=== PATIENT | male | born 1980 | race Caucasian/White ===

== ENCOUNTER 2019-05-30 19:35 | Emergency (ER) | payer OTHER ==
[2019-05-30 19:48] VITALS: RESP 16; TEMP 99
[2019-05-30] MEDS ORDERED: HYDROmorphone 1 MG/ML 1 ML SYRINGE IM STA (20:02)
[2019-05-30] MEDS ORDERED: DIPH,PERTUS(ACELL)TETVAC-LF 0.5 ML VIAL IM ONE (20:02)
[2019-05-30] MEDS ORDERED: HYDROmorphone 1 MG/ML 1 ML SYRINGE IVP STA ×2 (20:03→20:46)
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
[2019-05-30] MEDS ORDERED: ACET/COD 300 MG/30 MG STARTER PACK 6 TAB BTL PO STA (20:50)
[2019-05-30 21:53] VITALS: BP 154/100; PULSE 77
== END 2019-05-30 21:50 | disposition home or self-care (01) ==
LOC: EC 19:35
DX: T24.202A Burn of second degree of unspecified site of left lower limb, except ankle and foot, initial encounter (principal); T31.0 Burns involving less than 10% of body surface; Z23 Encounter for immunization; X12.XXXA Contact with other hot fluids, initial encounter; Y93.G3 Activity, cooking and baking; Y92.69 Other specified industrial and construction area as the place of occurrence of the external cause; Y99.0 Civilian activity done for income or pay
CPT/HCPCS: 90715; 99283; 16020; 90471; 96374; 96376; J1170

== ENCOUNTER 2024-11-08 16:35 | Inpatient (IN) | payer OTHER ==
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
--- NOTE | 2024-11-08 17:38 | ED ---
General Adult HPI - General Chief complaint: Shortness of Breath Stated complaint: SOB Time Seen by Provider: 11/08/24 16:47 Source: patient, RN notes reviewed, old records reviewed Mode of arrival: EMS - History of Present Illness Initial comments: 44 yo male presenting with respiratory distress. Patient brought in by paramedics with a 1 week history of worsening cough and dyspnea. Patient states he has had a productive cough of white sputum for the past 1 week with progre ssive dyspnea. No central chest pain. No lower extremity pain or swelling. No history of DVT or PE, no history of CAD. Patient is an extremis on 15 L nonrebreather. Paramedics gave DuoNeb x 2 and Solu-Medrol. - Related Data Home Medications Medication Instructions Recorded Confirmed Citalopram Hydrobromide [CeleXA] 10 mg PO DAILY 11/08/24 11/08/24 Levothyroxine Sodium [Synthroid] 100 mcg PO DAILY 11/08/24 11/08/24 amLODIPine 10 mg PO DAILY 11/08/24 11/08/24 metFORMIN HCL [Glucophage] 500 mg PO DAILY 11/08/24 11/08/24 Allergies Allergy/AdvReac Type Severity Reaction Status Date / Time No Known Allergies Allergy Verified 11/08/24 18:14 Review of Systems ROS Statement: Those systems with pertinent positive or pertinent negative responses have been documented in the HPI. ROS Other: All systems not noted in ROS Statement are negative. Past Medical History Past Medical History: No Reported History History of Any Multi-Drug Resistant Organisms: None Reported Past Surgical History: Appendectomy Past Psychological History: No Psychological Hx Reported Smoking Status: Former smoker Past Alcohol Use History: Daily, Occasional Past Drug Use History: Marijuana General Exam General appearance: alert, in distress Head exam: Present: atraumatic, normocephalic Eye exam: Present: normal appearance, PERRL ENT exam: Present: mucous membranes dry Neck exam: Present: normal inspection. Absent: tenderness Respiratory exam: Present: respiratory distress, decreased breath sounds (right), other (left Lung field is clear, no wheezing) Cardiovascular Exam: Present: regular rate GI/Abdominal exam: Present: soft, distended. Absent: tenderness Extremities exam: Present: normal inspection, normal capillary refill. Absent: calf tenderness Neurological exam: Present: alert, oriented X3 Psychiatric exam: Present: anxious Skin exam: Present: warm, dry, intact, cyanosis Course Vital Signs 11/08/24 11/08/24 11/08/24 16:37 16:59 18:06 Temperature 98.7 F Pulse Rate 130 H 129 H Respiratory 24 24 18 Rate Blood Pressure 157/93 142/91 O2 Sat by Pulse 87 L 89 L Oximetry 11/08/24 19:14 Temperature Pulse Rate 126 H Respiratory 20 Rate Blood Pressure 165/100 O2 Sat by Pulse 91 L Oximetry Medical Decision Making - Medical Decision Making Was pt. sent in by a medical professional or institution (, ANT, MEDICAL HISTORIAN, urgent care, hospital, or correction...) When possible be specific @ -No Did you speak to anyone other than the patient for history (EMS, parent, family, police, friend...)? What history was obtained from this source @ -No Did you review nursing and triage notes (agree or disagree)? Why? @ -I reviewed and agree with nursing and triage notes Were old charts reviewed (outside hosp., previous admission, EMS record, old EKG, old radiological studies, urgent care reports/EKG's, correction records)? Report findings @ -No old charts were reviewed Differential Dyspnea: Coronary syndrome, arrhythmia, tamponade, asthma, COPD, pulmonary embolism, pneumonia, pneumothorax, pulmonary effusion, anaphylaxis, diabetic ketoacidosis, flailed chest, pulmonary contusion, diaphragmatic rupture, anemia, neuromuscular, this is not meant to be an all-inclusive list. EKG interpreted by me (3pts min.). @This tachycardia, low voltage, rate of 126, AK interval 123, QRS duration 84, QTc [address] segment elevation. X-rays interpreted by me (1pt min.). @ -Chest x-ray shows opacification of the right hemithorax with midline shift to the left CT interpreted by me (1pt min.). @ -CT of the chest showing massive right-sided pleural effusion. U/S interpreted by me (1pt. min.). @ -None done What testing was considered but not performed or refused? (CT, X-rays, U/S, labs)? Why? @ -None What meds were considered but not given or refused? Why? @ -None Did you discuss the management of the patient with other professionals (professionals i.e. , ANT, MEDICAL HISTORIAN, lab, RT, psych nurse, licensed clinical social worker, sole painter, teacher, chief procurement officer, director of casework)? Give summary @Case discussed with after initial chest x-ray reveals opacification of the right hemithorax Case discussed with [facility], will admit Was smoking cessation discussed for >3mins.? @ -No Was critical care preformed (if so, how long)? @ -[yes, 35 min Were there social determinants of health that impacted care today? How? ( Homelessness, low income, unemployed, alcoholism, drug addiction, transportation, low edu. Level, literacy, decrease access to med. care, longterm, rehab)? @ -No Was there de-escalation of care discussed even if they declined (Discuss DNR or withdrawal of care, Hospice)? DNR status @ -No What co-morbidities impacted this encounter? (DM, HTN, Smoking, COPD, CAD, Cancer, CVA, ARF, Chemo, Hep., AIDS, mental health diagnosis, sleep apnea, morbid obesity)? @Daily drinker, smokes marijuana Was patient admitted / discharged? Hospital course, mention meds given and route, prescriptions, significant lab abnormalities, going to OR and other pertinent info. @ -[44-year-old male presenting in extremis, tachycardic, hypoxic on 15 L. Patient has decreased air entry on the right. X-ray showing opacification of the right hemithorax, CT confirming large right-sided pleural effusion. Patient has lab abnormalities including leukocytosis, lactic acidosis, patient covered with antibiotics for pneumonia. Chest tube placed by Dr. Pettit in the emergency department. Undiagnosed new problem with uncertain prognosis? @ -No Drug Therapy requiring intensive monitoring for toxicity (Heparin, Nitro, Insu karlee, Cardizem)? @ -No Were any procedures done? @ -No Diagnosis/symptom? @ -Right-sided pleural effusion, pneumonia, respiratory failure Acute, or Chronic, or Acute on Chronic? @ -Acute Uncomplicated (without systemic symptoms) or Complicated (systemic symptoms)? @ -Default Side effects of treatment? @ -No Exacerbation, Progression, or Severe Exacerbation? @ -No Poses a threat to life or bodily function? How? (Chest pain, USA, CA, pneumonia, PE, COPD, DKA, ARF, appy, cholecystitis, CVA, Diverticulitis, Homicidal, Suicidal, threat to staff... and all critical care pts) @ -[yes, respiratory failure - Lab Data Result diagrams: 11/08/24 17:02 11/08/24 17:02 Lab Results 11/08/24 11/08/24 11/08/24 Range/Units 17:02 17:02 17:02 WBC 15.6 H (3.8-10.6) k/uL RBC 4.22 L (4.30-5.90) m/uL Hgb 13.2 (13.0-17.5) gm/dL Hct 40.1 (39.0-53.0) % MCV 95.2 (80.0-100.0) fL MCH 31.3 (25.0-35.0) pg MCHC 32.9 (31.0-37.0) g/dL RDW 17.7 H (11.5-15.5) % Plt Count 250 (150-450) k/uL MPV 9.3 Neutrophils % 76 % Lymphocytes % 16 % Monocytes % 5 % Eosinophils % 1 % Basophils % 1 % Neutrophils # 11.9 H (1.3-7.7) k/uL Lymphocytes # 2.5 (1.0-4.8) k/uL Monocytes # 0.8 (0-1.0) k/uL Eosinophils # 0.1 (0-0.7) k/uL Basophils # 0.1 (0-0.2) k/uL Anisocytosis Slight Macrocytosis Slight PT (10.0-12.5) sec INR (<1.2) APTT (22.0-30.0) sec Sodium 131 L (137-145) mmol/L Potassium 4.1 (3.5-5.1) mmol/L Chloride 91 L (98-107) mmol/L Carbon Dioxide 25 (22-30) mmol/L Anion Gap 15 mmol/L BUN 7 L (9-20) mg/dL Creatinine 0.56 L (0.66-1.25) mg/dL Est GFR (CKD-EPI)AfAm >90 (>60 ml/min/1.73 sqM) Est GFR (CKD-EPI)NonAf >90 (>60 ml/min/1.73 sqM) Glucose 129 H (74-99) mg/dL Plasma Lactic Acid Christiano 3.4 H* (0.7-2.0) mmol/L Calcium 8.7 (8.4-10.2) mg/dL Magnesium 1.3 L (1.6-2.3) mg/dL Total Bilirubin 3.2 H (0.2-1.3) mg/dL AST 194 H (17-59) U/L ALT 41 (4-49) U/L Alkaline Phosphatase 158 H (38-126) U/L Troponin I (0.000-0.034) ng/mL NT-Pro-B Natriuret Pep 118 pg/mL Total Protein 9.0 H (6.3-8.2) g/dL Albumin 4.0 (3.5-5.0) g/dL Influenza Type A (PCR) (Not Detectd) Influenza Type B (PCR) (Not Detectd) RSV (PCR) (Not Detectd) SARS-CoV-2 (PCR) (Not Detectd) 11/08/24 11/08/24 11/08/24 Range/Units 17:02 17:26 18:00 WBC (3.8-10.6) k/uL RBC (4.30-5.90) m/uL Hgb (13.0-17.5) gm/dL Hct (39.0-53.0) % MCV (80.0-100.0) fL MCH (25.0-35.0) pg MCHC (31.0-37.0) g/dL RDW (11.5-15.5) % Plt Count (150-450) k/uL MPV Neutrophils % % Lymphocytes % % Monocytes % % Eosinophils % % Basophils % % Neutrophils # (1.3-7.7) k/uL Lymphocytes # (1.0-4.8) k/uL Monocytes # (0-1.0) k/uL Eosinophils # (0-0.7) k/uL Basophils # (0-0.2) k/uL Anisocytosis Macrocytosis PT 16.9 H (10.0-12.5) sec INR 1.6 H (<1.2) APTT 27.8 (22.0-30.0) sec Sodium (137-145) mmol/L Potassium (3.5-5.1) mmol/L Chloride (98-107) mmol/L Carbon Dioxide (22-30) mmol/L Anion Gap mmol/L BUN (9-20) mg/dL Creatinine (0.66-1.25) mg/dL Est GFR (CKD-EPI)AfAm (>60 ml/min/1.73 sqM) Est GFR (CKD-EPI)NonAf (>60 ml/min/1.73 sqM) Glucose (74-99) mg/dL Plasma Lactic Acid Christiano (0.7-2.0) mmol/L Calcium (8.4-10.2) mg/dL Magnesium (1.6-2.3) mg/dL Total Bilirubin (0.2-1.3) mg/dL AST (17-59) U/L ALT (4-49) U/L Alkaline Phosphatase (38-126) U/L Troponin I <0.012 (0.000-0.034) ng/mL NT-Pro-B Natriuret Pep pg/mL Total Protein (6.3-8.2) g/dL Albumin (3.5-5.0) g/dL Influenza Type A (PCR) Not Detected (Not Detectd) Influenza Type B (PCR) Not Detected (Not Detectd) RSV (PCR) Not Detected (Not Detectd) SARS-CoV-2 (PCR) Not Detected (Not Detectd) Critical Care Time Critical Care Time: Yes Total Critical Care Time: 35 Disposition Clinical Impression: Community acquired pneumonia, Pleural effusion, Hypoxic respiratory failure Disposition: ADMITTED IP TO THIS HOSP Condition: Serious Is patient prescribed a controlled substance at d/c from ED?: No Referrals: Georgina Monryo MD [Primary Care Provider] - 1-2 days Time of Disposition: 19:25
[2024-11-08 17:45] LABS: Anisocytosis Slight; Basophils # (A) 0.1 k/uL (0-0.2); Basophils % (A) 1 %; Eosinophils # (A) 0.1 k/uL (0-0.7); Eosinophils % (A) 1 %; HCT 40.1 % (39.0-53.0); HGB 13.2 gm/dL (13.0-17.5); Lymphocytes # (A) 2.5 k/uL (1.0-4.8); Lymphocytes % (A) 16 %; MCH 31.3 pg (25.0-35.0); MCHC 32.9 g/dL (31.0-37.0); MCV 95.2 fL (80.0-100.0); Macrocytosis Slight; Mean Platelet Volume 9.3; Monocytes # (A) 0.8 k/uL (0-1.0); Monocytes % (A) 5 %; Neutrophils # (A) 11.9 k/uL (1.3-7.7); Neutrophils % (A) 76 %; Platelet Count 250 k/uL (150-450); RBC 4.22 m/uL (4.30-5.90); RDW 17.7 % (11.5-15.5); WBC 15.6 k/uL (3.8-10.6)
[2024-11-08 18:08] LABS: ALT 41 U/L (4-49); African American GFR (CKD) >90 (>60 ml/min/1.73 sqM); Anion Gap 15 mmol/L; Blood Urea Nitrogen 7 mg/dL (9-20); Calcium 8.7 mg/dL (8.4-10.2); Carbon Dioxide 25 mmol/L (22-30); Chloride 91 mmol/L (98-107); Glucose 129 mg/dL (74-99); Non-African American GFR(CKD) >90 (>60 ml/min/1.73 sqM); Sodium 131 mmol/L (137-145); Total Bilirubin 3.2 mg/dL (0.2-1.3)
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
[2024-11-08 18:17] LABS: NT-Pro-B-Type Natriuretic Pept 118 pg/mL; Potassium 4.1 mmol/L (3.5-5.1)
[2024-11-08 18:18] LABS: AST 194 U/L (17-59); Alkaline Phosphatase 158 U/L (38-126); Magnesium 1.3 mg/dL (1.6-2.3)
[2024-11-08] MEDS: AZITHROMYCIN 500 MG in SODIUM CHLORIDE 0.9% 250 ML IVPB STA (18:55)
[2024-11-08 19:09] LABS: INR 1.6 (<1.2); Partial Thromboplastin Time 27.8 sec (22.0-30.0); Prothrombin Time 16.9 sec (10.0-12.5)
[2024-11-08] MEDS: MAGNESIUM SULFATE-D5W PMX 1 GM in DEXTROSE/WATER 1 100ML.BAG IVPB SCH (19:17)
[2024-11-08] MEDS ORDERED: NALOXONE 0.4 MG/ML 1 ML VIAL IV PRN (19:19)
[2024-11-08 19:48] LABS: Appearance,Urine Turbid (Clear); Bilirubin,Urine 1+ (Negative); Blood,Urine Negative (Negative); Color,Urine Dark Brown; Glucose,Urine (UA) Trace (Negative); Hyaline Casts,Urine 25 /lpf (0-2); Ketones,Urine Negative (Negative); Leukocyte Esterase,Urine Negative (Negative); Mucus,Urine Many /hpf; Nitrite,Urine Negative (Negative); PH, Urine 5.5 (5.0-8.0); Protein,Urine 1+ (Negative); RBC,Urine 3 /hpf (0-5); Specific Gravity,Urine 1.025 (1.001-1.035); Squamous Epithelial Cell,Urine 5 /hpf (0-4); Urobilinogen,Urine <2.0 mg/dL (<2.0); WBC,Urine 2 /hpf (0-5)
--- NOTE | 2024-11-08 20:03 | P.PCN ---
Date of Procedure: 11/08/24 Preoperative Diagnosis: Right-sided pleural effusion Postoperative Diagnosis: Right-sided pleural effusion Procedure(s) Performed: chest tube right-sided Anesthesia: local Surgeon: Dmitiry Chau Estimated Blood Loss (ml): 0 Pathology: other Condition: stable Disposition: floor Operative Findings: A time-out was completed verifying correct patient, procedure, site, positioning, and special equipment if applicable. The patient was positioned appropriately for chest tube placement. The patients right chest was prepped and draped in sterile fashion. 1% Lidocaine was used to anesthetize the surrounding skin area. A 2 cm skin incision was made in the mid-axillary line at the inframammarycrease. Utilizing blunt dissection a subcutaneous tunnel was created cephalad just adjacent to the superior rib. The pleural space was entered bluntly and gush of pleural fluid was observed. A finger was inserted into the pleural space to check for anatomy and guide tube insertion. A 28 thoracostomy tube was inserted using a Kaila clamp and positioned appropriately. The chest tube was sutured securely to the skin and a sterile dressing applied. A pleurevac was attached to the chest tube and a chest x-ray obtained. I personally performed this procedure and I was was present for the entire procedure. Following insertion of the chest tube, a total of 5.5 L of pleural fluid was aspirated and collected in the Pleur-evac atrium. Estimated Blood Loss: 0 The patient tolerated the procedure well and there were no complications.
[2024-11-08] MEDS: LIDOCAINE 1% INJ 10MG/ML (20 ML MDV) SQ ONE (20:10)
--- NOTE | 2024-11-08 20:16 | XR ---
EXAMINATION TYPE: XR chest 1V portable DATE OF EXAM: 11/08/2024 8:03 PM CLINICAL INDICATION:Male, 44 years old with history of Chest tube; [facility] COMPARISON: CT chest from the same day. Chest radiograph from same day. TECHNIQUE: XR chest 1V portable Frontal view of the chest. FINDINGS: There is interval significant improvement of aeration of the right lung when compared to the previous chest x-ray from same day. There is residual opacification seen in the right mid and lower lung zone . No pneumothorax. Cardiac silhouette is unremarkable. Mild interstitial prominence of the left lung. No pneumothorax. No acute osseous normality is. IMPRESSION: 1. Significant interval improvement of the right lung aeration with only residual opacities remaining in the right mid/lower lung which may reflect residual fluid versus atelectasis. No pneumothorax. 2. There is no chest tube seen on exam. Correlate with physical exam. [facility], , 11/08/2024 8:13 PM
[2024-11-08] MEDS: HYDROmorphone 0.5 MG/0.5 ML SYRINGE IVP STA (20:17)
[2024-11-08] MEDS: SODIUM CHLORIDE 0.9% 1,000 ML IV SCH (20:56)
[2024-11-08 21:21] LABS: Total Protein 8.7 g/dL (6.3-8.2)
[2024-11-08] MEDS: HYDROmorphone 0.5 MG/0.5 ML SYRINGE IVP PRN (21:45)
--- NOTE | 2024-11-08 22:06 | P.CNPUL ---
History of Present Illness Consult date: 11/08/24 Reason for consult: dyspnea, pleural effusion History of present illness: 44-year-old male patient, came into the emergency because of progressive worsening shortness of breath over the past 3 to 4 weeks and he was in severe respiratory distress, unable to lay down flat because of ongoing dyspnea. No chest pain. No trauma to the chest. No reported fever or chills. Minimal cough. No significant sputum production. In the emergency, he was placed on 100% nonrebreather facemask to maintain a saturation of around 88 to 89%. The patient was in sinus tachycardia when he was having labored breathing. Chest x- ray showed complete opacification of the right lung and based on that, a CAT scan of the chest was obtained that showed a massive right-sided pleural effusion and complete atelectasis of the right lung. Focal infiltrate in the l eft lung was also seen. The patient's white cell count is 15.6, hemoglobin 13.2, platelet count of 250, INR is at 1.6 with a PT of 16.9, sodium was at 131 with a potassium level of 4.1, BUN is 7 with a creatinine of 0.5. Anion gap is at 15. Initial lactic acid level was at 3.4, dropped down to 2.4, proBNP level was 118, troponin was negative, albumin was 4 with a total protein of 9.0. UA showed +1 protein, 2 WBCs and viral 4 Plex was negative. No history of any congestion or heart failure. Smokes marijuana. Review of Systems Constitutional: Reports daytime sleepiness, Reports fatigue, Reports weight gain Eyes: denies as per HPI, denies blurred vision, denies bulging eye, denies decreased vision, denies diplopia, denies discharge, denies dry eye, denies irritation, denies itching, denies pain, denies photophobia, denies loss of peripheral vision, denies loss of vision, denies tunnel vision/blind spots Ears: deny: decreased hearing, ear discharge, earache, tinnitus Breasts: absent: as per HPI, gynecomastia Cardiovascular: Reports decreased exercise tolerance, Reports dyspnea on exertion Respiratory: Reports dyspnea Gastrointestinal: Reports as per HPI Genitourinary: Reports as per HPI Musculoskeletal: Reports as per HPI Musculoskeletal: absent: ankle pain, ankle stiffness, ankle swelling, as per HPI, elbow pain, elbow stiffness, elbow swelling, foot pain, foot stiffness, foot swelling, hand pain, hand stiffness, hand swelling, hip pain, hip stiffness, hip swelling, knee pain, knee stiffness, knee swelling, shoulder pain, shoulder stiffness, shoulder swelling, wrist pain, wrist stiffness, wrist swelling Integumentary: Reports as per HPI Neurological: Reports as per HPI Psychiatric: Reports as per HPI Endocrine: Reports as per HPI Hematologic/Lymphatic: Reports as per HPI Allergic/Immunologic: Reports as per HPI Past Medical History Past Medical History: No Reported History, Diabetes Mellitus, Hypertension, Th yroid Disorder History of Any Multi-Drug Resistant Organisms: None Reported Past Surgical History: Appendectomy Past Psychological History: No Psychological Hx Reported Smoking Status: Former smoker Past Alcohol Use History: Daily, Occasional Past Drug Use History: Marijuana Medications and Allergies Home Medications Medication Instructions Recorded Confirmed Type Citalopram Hydrobromide [CeleXA] 10 mg PO DAILY 11/08/24 11/08/24 History Levothyroxine Sodium [Synthroid] 100 mcg PO DAILY 11/08/24 11/08/24 History amLODIPine 10 mg PO DAILY 11/08/24 11/08/24 History metFORMIN HCL [Glucophage] 500 mg PO DAILY 11/08/24 11/08/24 History Allergies Allergy/AdvReac Type Severity Reaction Status Date / Time No Known Allergies Allergy Verified 11/08/24 18:14 Physical Exam Vitals: Vital Signs Temp Pulse Resp BP Pulse Ox 11/08/24 21:36 98.6 F 126 H 18 157/99 94 L 11/08/24 20:28 128 H 22 134/87 95 11/08/24 20:06 128 H 18 127/80 100 11/08/24 19:14 126 H 20 165/100 91 L 11/08/24 18:06 129 H 18 142/91 89 L 11/08/24 16:59 24 11/08/24 16:37 98.7 F 130 H 24 157/93 87 L Intake and Output 11/08/24 11/08/24 11/08/24 06:59 14:59 22:59 Output Total 5500 Balance -5500 Output: Chest Tube Drainage 5500 Chest Tube Right Mid- 5500 Axillary Chest Other: Weight 127.006 kg Results - Laboratory Findings CBC and BMP: 11/08/24 17:02 11/08/24 17:02 PT/INR, D-dimer PT 16.9 sec (10.0-12.5) H 11/08/24 18:00 INR 1.6 (<1.2) H 11/08/24 18:00 Abnormal lab findings: Abnormal Labs 11/08/24 11/08/24 11/08/24 17:02 17:02 17:02 WBC 15.6 H RBC 4.22 L RDW 17.7 H Neutrophils # 11.9 H PT INR Sodium 131 L Chloride 91 L BUN 7 L Creatinine 0.56 L Glucose 129 H Plasma Lactic Acid Christiano 3.4 H* Magnesium 1.3 L Total Bilirubin 3.2 H AST 194 H Alkaline Phosphatase 158 H Lactate Dehydrogenase Total Protein 9.0 H Urine Protein Urine Glucose (UA) Urine Bilirubin Ur Squamous Epith Cells Hyaline Casts Urine Mucus 11/08/24 11/08/24 11/08/24 18:00 19:14 20:22 WBC RBC RDW Neutrophils # PT 16.9 H INR 1.6 H Sodium Chloride BUN Creatinine Glucose Plasma Lactic Acid Christiano Magnesium Total Bilirubin AST Alkaline Phosphatase Lactate Dehydrogenase 410 H Total Protein 8.7 H Urine Protein 1+ H Urine Glucose (UA) Trace H Urine Bilirubin 1+ H Ur Squamous Epith Cells 5 H Hyaline Casts 25 H Urine Mucus Many H 11/08/24 20:22 WBC RBC RDW Neutrophils # PT INR Sodium Chloride BUN Creatinine Glucose Plasma Lactic Acid Christiano 2.4 H* Magnesium Total Bilirubin AST Alkaline Phosphatase Lactate Dehydrogenase Total Protein Urine Protein Urine Glucose (UA) Urine Bilirubin Ur Squamous Epith Cells Hyaline Casts Urine Mucus - Diagnostic Findings CT scan - chest: image reviewed Assessment and Plan Plan: Acute hypoxic respiratory failure, currently on 100% nonrebreather facemask Subacute shortness of breath with acute worsening over the past 1 week Large right-sided pleural effusion with mass effect and shift of the trachea to the left and complete atelectasis of the right lung. Rule out parapneumonic effusion. Rule out malignant effusion. Rule out chronic liver disease with hepatic hydrothorax. Sinus tachycardia Leukocytosis, likely acute Obesity with a BMI of 40.2 Hypertension Hypothyroidism Diabetes mellitus type 2 Plan Patient was seen and evaluated in the emergency. The patient will need a emergent chest tube to evacuate right-sided pleural effusion. This will be done in the emergency department following that the pleural fluid will be sent for analysis. Further recommendations are to follow based on the results of the f luid analysis. Patient was started on empiric antibiotic coverage, given a combination of Rocephin and Zithromax in the emergency department. Will continue following of this patient.
[2024-11-09 04:11] LABS: Cholesterol,BF Source Pleural Fluid; Cholesterol,Body Fluid 26 mg/dL; Glucose, BF Source Pleural Fluid; Glucose, Body Fluid 131 mg/dL; LDH, Body Fluid Source Pleural Fluid; T. Protein, Body Fluid Source Pleural Fluid; Total Protein, Body Fluid 3350 mg/dL
[2024-11-09 04:26] LABS: Appearance,BF Clear (Clear)
[2024-11-09] MEDS: LEVOTHYROXINE 100 MCG TAB PO SCH (06:16)
--- NOTE | 2024-11-09 08:23 | US ---
EXAMINATION TYPE: US abdomen complete DATE OF EXAM: 11/09/2024 COMPARISON: NONE CLINICAL INDICATION: Male, 44 years old with history of Rule out chronic liver disease, rule out asci yarelis; Patient drinks up to 12 beers per day; Recent ? flu with diarrhea and OSCAR. Chest tube inserted y esterday to drain fluid off of lungs TECHNIQUE: Grayscale and color Doppler imaging of the abdomen was performed. FINDINGS: EXAM MEASUREMENTS: Liver Length: 25.0 cm Gallbladder Wall: 0.2 cm CBD: 0.5 cm, color Doppler imaging was utilized to isolate the common bile duct for measurement. Spleen: 15.7 cm Right Kidney: 13.3 x 5.5 x 6.5 cm Left Kidney: 15.3 x 6.1 x 5.8 cm [employer] NOTES: Pancreas: Obscured by bowel gas Liver: Increased attenuation, decreased visualization of vessels suggestive of fatty infiltrate Gallbladder: Limited visualization Evidence for sonographic Mitchell's sign: ? discomfort due to right chest tube CBD: wnl Spleen: Increased attenuation Right Kidney: Limited visualization due to bowel gas Left Kidney: Limited visualization due to bowel gas Upper IVC: Obscured by overlying bowel gas Abd Aorta: Obscured by overlying bowel gas No ascites seen - extensive bowel gas throughout abdomen - patient is properly NPO Suboptimal evaluation of pancreas. Suboptimal evaluation of mid and distal abdominal aorta. Hepatomeg beatriz. Visualized liver is diffusely hyperechoic. Evaluation for focal masses suboptimal due to the het erogeneous echogenicity. Common bile duct measures within normal limits. Poorly visualized gallbladde r. No gross hydronephrosis in either kidney. Splenomegaly is seen. No distinct ascites. IMPRESSION: Suboptimal study. Hepatosplenomegaly is noted. There is diffuse fatty infiltration and/or underlying hepatocellular disease noted. No ascites is present. [facility], , 11/09/2024 8:21 AM
--- NOTE | 2024-11-09 09:55 | XR ---
EXAMINATION TYPE: XR chest 1V portable DATE OF EXAM: 11/09/2024 CLINICAL HISTORY: Status post chest tube insertion. TECHNIQUE: Single AP portable semiupright view of the chest is obtained. COMPARISON: Chest x-ray from one day earlier FINDINGS: Persistent right basilar chest tube. Continued improved aeration right lung. Developing le ft basilar opacity noted. Cardiac silhouette size stable and within normal limits. Osseous structures are intact. IMPRESSION: Continued improving right lower lung acute infiltrate and/or atelectasis but developing l eft basilar acute infiltrate and/or atelectasis noted. [facility], , 11/09/2024 9:53 AM
[2024-11-09] MEDS: CITALOPRAM HYDROBROMIDE 10 MG TAB PO SCH (10:38)
[2024-11-09] MEDS: amLODIPine 10 MG TAB PO SCH (10:38)
[2024-11-09] MEDS: METOPROLOL TARTRATE 25 MG TAB PO SCH (11:38)
--- NOTE | 2024-11-09 12:18 | P.HPIM ---
History of Present Illness 44-year-old pleasant male came in with complaints of worsening shortness of breath has been going on for 3 to 4 weeks found to have a extensive right-sided pleural effusion complete whiteout of the right lung. Patient underwent pleural tap removal of about 6 L of pleural fluid. Pleural fluid labs are consistent with transudative. Patient does not have any elevated BNP clinically does not appear to be in CHF although patient appears to have ascites and liver disease with fatty liver patient has chronic alcoholism quit quit alcohol quite a bit recently. Ultrasound of the abdomen was done which showed fatty liver patient does have slightly elevated liver enzymes and INR is 1.6. All consistent with hepatocellular disease from chronic alcoholism. Hepatitis panel was ordered. Patient does not have any evidence of pneumonia although patient was empirically started on antibiotics before the fluid pleural pleural fluid analysis. There is no evidence of pneumonia. I do not have any albumin level for the fluid but serum albumin is 4 LDH is above 400 and fluid LDH is around 140. Presently has a chest tube in place. Hepatitis panel was ordered. REVIEW OF SYSTEMS: All other systems are negative except those mentioned in the HPI PHYSICAL EXAMINATION: GENERAL: The patient is alert and oriented x3, not in any acute distress. Obese HEENT: Pupils are round and equally reacting to light. EOMI. No scleral icterus. No conjunctival pallor. Normocephalic, atraumatic. No pharyngeal erythema. No thyromegaly. CARDIOVASCULAR: S1 and S2 present. No murmurs, rubs, or gallops. PULMONARY: Chest is clear to auscultation, no wheezing or crackles. ABDOMEN: Soft, nontender, distended abdomen, normoactive bowel sounds. No palpable organomegaly. MUSCULOSKELETAL: No joint swelling or deformity. EXTREMITIES: No cyanosis, clubbing, or pedal edema. NEUROLOGICAL: Gross neurological examination did not reveal any focal deficits. SKIN: No rashes. Assessment and plan -Acute hypoxic respiratory failure secondary to right-sided pleural effusion patient is status post removal of 6 L of fluid with a chest tube. Patient probably has cirrhosis leading to volume overload and patient has transudative pleural effusion. Low possibility of malignancy cytology is pending. Antibiotics probably can be discontinued no evidence of pneumonia at this time. -Transfer to right-sided pleural effusion -Possible cirrhosis/hepatocellular disease from chronic alcoholism -Hypertension -Hypothyroidism -Type 2 diabetes mellitus for which patient will be on sliding scale insulin DVT prophylaxis: Patient is already anticoagulated with elevated INR of 1.6 early ambulation will not require any pharmacological DVT prophylaxis at this time Past Medical History Past Medical History: No Reported History, Diabetes Mellitus, Hypertension, Thyroid Disorder History of Any Multi-Drug Resistant Organisms: None Reported Past Surgical History: Appendectomy Past Psychological History: No Psychological Hx Reported Smoking Status: Former smoker Past Alcohol Use History: Daily, Occasional Past Drug Use History: Marijuana Medications and Allergies Home Medications Medication Instructions Recorded Confirmed Type Citalopram Hydrobromide [CeleXA] 10 mg PO DAILY 11/08/24 11/08/24 History Levothyroxine Sodium [Synthroid] 100 mcg PO DAILY 11/08/24 11/08/24 History amLODIPine 10 mg PO DAILY 11/08/24 11/08/24 History metFORMIN HCL [Glucophage] 500 mg PO DAILY 11/08/24 11/08/24 History Allergies Allergy/AdvReac Type Severity Reaction Status Date / Time No Known Allergies Allergy Verified 11/08/24 18:14 Physical Exam Vitals: Vital Signs Temp Pulse Pulse Resp BP Pulse Ox 11/09/24 11:37 117 H 20 125/80 90 L 11/09/24 10:35 115 H 16 11/09/24 10:30 98.1 F 115 H 16 144/83 92 L 11/09/24 06:00 98.5 F 118 H 20 134/76 92 L 11/09/24 04:00 115 H 16 141/85 92 L 11/09/24 02:45 120 H 17 141/85 90 L 11/09/24 01:37 123 H 18 138/84 91 L 11/09/24 00:14 128 H 18 91 L 11/08/24 23:10 99.3 F 128 H 18 150/91 90 L 11/08/24 21:58 98.7 F 128 H 21 137/91 90 L 11/08/24 21:36 98.6 F 126 H 18 157/99 94 L 11/08/24 20:28 128 H 22 134/87 95 11/08/24 20:06 128 H 18 127/80 100 11/08/24 19:14 126 H 20 165/100 91 L 11/08/24 18:06 129 H 18 142/91 89 L 11/08/24 16:59 24 11/08/24 16:37 98.7 F 130 H 24 157/93 87 L Intake and Output 11/08/24 11/09/24 11/09/24 22:59 06:59 14:59 Output Total 5500 1100 335 Balance -5500 -1100 -335 Output: Chest Tube Drainage 5500 Chest Tube Right Mid- 5500 Axillary Chest Drainage 650 335 Right Chest 650 335 Urine 450 Other: Weight 127.006 kg Results CBC & Chem 7: 11/08/24 17:02 11/08/24 17:02 Labs: Abnormal Lab Results - Last 24 Hours (Table) 11/08/24 11/08/24 11/08/24 Range/Units 17:02 17:02 17:02 WBC 15.6 H (3.8-10.6) k/uL RBC 4.22 L (4.30-5.90) m/uL RDW 17.7 H (11.5-15.5) % Neutrophils # 11.9 H (1.3-7.7) k/uL PT (10.0-12.5) sec INR (<1.2) Sodium 131 L (137-145) mmol/L Chloride 91 L (98-107) mmol/L BUN 7 L (9-20) mg/dL Creatinine 0.56 L (0.66-1.25) mg/dL Glucose 129 H (74-99) mg/dL Plasma Lactic Acid Christiano 3.4 H* (0.7-2.0) mmol/L Magnesium 1.3 L (1.6-2.3) mg/dL Total Bilirubin 3.2 H (0.2-1.3) mg/dL AST 194 H (17-59) U/L Alkaline Phosphatase 158 H (38-126) U/L Lactate Dehydrogenase (120-246) U/L Total Protein 9.0 H (6.3-8.2) g/dL Urine Protein (Negative) Urine Glucose (UA) (Negative) Urine Bilirubin (Negative) Ur Squamous Epith Cells (0-4) /hpf Hyaline Casts (0-2) /lpf Urine Mucus (None) /hpf 11/08/24 11/08/24 11/08/24 Range/Units 18:00 19:14 20:22 WBC (3.8-10.6) k/uL RBC (4.30-5.90) m/uL RDW (11.5-15.5) % Neutrophils # (1.3-7.7) k/uL PT 16.9 H (10.0-12.5) sec INR 1.6 H (<1.2) Sodium (137-145) mmol/L Chloride (98-107) mmol/L BUN (9-20) mg/dL Creatinine (0.66-1.25) mg/dL Glucose (74-99) mg/dL Plasma Lactic Acid Christiano (0.7-2.0) mmol/L Magnesium (1.6-2.3) mg/dL Total Bilirubin (0.2-1.3) mg/dL AST (17-59) U/L Alkaline Phosphatase (38-126) U/L Lactate Dehydrogenase 410 H (120-246) U/L Total Protein 8.7 H (6.3-8.2) g/dL Urine Protein 1+ H (Negative) Urine Glucose (UA) Trace H (Negative) Urine Bilirubin 1+ H (Negative) Ur Squamous Epith Cells 5 H (0-4) /hpf Hyaline Casts 25 H (0-2) /lpf Urine Mucus Many H (None) /hpf 11/08/24 11/08/24 Range/Units 20:22 23:42 WBC (3.8-10.6) k/uL RBC (4.30-5.90) m/uL RDW (11.5-15.5) % Neutrophils # (1.3-7.7) k/uL PT (10.0-12.5) sec INR (<1.2) Sodium (137-145) mmol/L Chloride (98-107) mmol/L BUN (9-20) mg/dL Creatinine (0.66-1.25) mg/dL Glucose (74-99) mg/dL Plasma Lactic Acid Christiano 2.4 H* 3.5 H* (0.7-2.0) mmol/L Magnesium (1.6-2.3) mg/dL Total Bilirubin (0.2-1.3) mg/dL AST (17-59) U/L Alkaline Phosphatase (38-126) U/L Lactate Dehydrogenase (120-246) U/L Total Protein (6.3-8.2) g/dL Urine Protein (Negative) Urine Glucose (UA) (Negative) Urine Bilirubin (Negative) Ur Squamous Epith Cells (0-4) /hpf Hyaline Casts (0-2) /lpf Urine Mucus (None) /hpf Microbiology - Last 24 Hours (Table) 11/08/24 20:05 Gram Stain - Preliminary Pleural Fluid
[2024-11-09 12:31] LABS: Glucose,Whole Blood 145 mg/dL (70-110)
[2024-11-09] MEDS: INSULIN ASPART (NovoLOG) 100 UNIT/ML VIAL SQ SCH (12:35)
[2024-11-09] MEDS: MAGNESIUM SULFATE-D5W PMX 1 GM in DEXTROSE/WATER 1 100ML.BAG IVPB SCH (12:36)
--- NOTE | 2024-11-09 13:17 | CA ---
Transthoracic Echo Report Name: Victor M Ahn Age: 44 Gender: M : 1980 Exam Date: 11/09/2024 09:49 Exam Location: [place] [facility] Ht (in): 70 Wt (lb): 280 Ordering Physician: Dmitriy Chau MD Attending/Referring Phys: Stone Layout Marker Zuleika Garcia RDCS Procedure CPT: Indications: rule out CHF Cardiac Hx: Technical Quality: Poor Contrast 1: Total Dose (mL): Contrast 2: Total Dose (mL): MEASUREMENTS (Male / Female) Normal Values 2D ECHO LV Diastolic Diameter PLAX 5.4 cm 4.2 - 5.9 / 3.9 - 5.3 cm LV Systolic Diameter PLAX 3.1 cm IVS Diastolic Thickness 0.9 cm 0.6 - 1.0 / 0.6 - 0.9 cm LVPW Diastolic Thickness 1.3 cm 0.6 - 1.0 / 0.6 - 0.9 cm LV Relative Wall Thickness 0.4 RV Internal Dim ED PLAX 2.4 cm LA Systolic Diameter LX 4.7 cm 3.0 - 4.0 / 2.7 - 3.8 cm LV Diastolic Volume MOD BP 83.4 cm??? 67 - 155 / 56 - 104 cm??? LV Systolic Volume MOD BP 39.7 cm??? 22 - 58 / 19 - 49 cm??? LV Ejection Fraction MOD BP 52.5 % >= 55 % LV Cardiac Index MOD BP 1949.0 cm???/min???m??? LV Diastolic Volume MOD 4C 95.9 cm??? LV Systolic Volume MOD 4C 42.7 cm??? LV Ejection Fraction MOD 4C 55.5 % LV Cardiac Index MOD 4C 2369.4 cm???/min???m??? LV Diastolic Length 4C 7.8 cm LV Systolic Length 4C 6.3 cm LV Diastolic Volume MOD 2C 71.0 cm??? LV Systolic Volume MOD 2C 33.8 cm??? LV Ejection Fraction MOD 2C 52.3 % LV Cardiac Index MOD 2C 1655.0 cm???/min???m??? LV Diastolic Length 2C 7.6 cm LV Systolic Length 2C 7.0 cm M-MODE Aortic Root Diameter MM 3.7 cm LA Systolic Diameter MM 4.7 cm LA Ao Ratio MM 1.3 AV Cusp Separation MM 2.4 cm DOPPLER AV Peak Velocity 145.2 cm/s AV Peak Gradient 8.4 mmHg MV E' Velocity 19.0 cm/s TR Peak Velocity 204.0 cm/s TR Peak Gradient 16.7 mmHg Right Ventricular Systolic Press 26.7 mmHg FINDINGS Left Ventricle Left ventricular ejection fraction is estimated at 55-60%. Normal Left ventricular size, wall thickness, systolic function with no obvious regional wall motion abnormalities. Normal Left ventricular diastolic filling pattern. Right Ventricle Mild right ventricular dilatation. Right ventricular systolic pressure within normal limits. Right Atrium Mild right atrial dilatation. Left Atrium Moderately increased left atrial diameter. Mitral Valve Structurally normal mitral valve. Trace mitral regurgitation. No mitral stenosis. Aortic Valve Trileaflet aortic valve. No aortic valve stenosis or regurgitation. Tricuspid Valve Structurally normal tricuspid valve. Trace tricuspid regurgitation. No tricuspid stenosis. Pulmonic Valve Structurally normal pulmonic valve. Trace pulmonic regurgitation. No pulmonic stenosis. Pericardium No pericardial or pleural effusion. Aorta Aorta at upper limits of normal. CONCLUSIONS LVEF 55% No obvious regional wall motion abnormality Moderate LA dilatation. Mild RA dilatation Mild RV dilatation. Normal RV systolic function No significant valvular dysfunction Previewed by: Dr Matthew Fisher (Electronically Signed) Final Date: 09 November 2024 13:16
--- NOTE | 2024-11-09 15:47 | P.PN ---
Subjective Progress Note Date: 11/09/24 44-year-old male patient, came into the emergency because of progressive worsen ing shortness of breath over the past 3 to 4 weeks and he was in severe respiratory distress, unable to lay down flat because of ongoing dyspnea. No chest pain. No trauma to the chest. No reported fever or chills. Minimal cough. No significant sputum production. In the emergency, he was placed on 100% nonrebreather facemask to maintain a saturation of around 88 to 89%. The patient was in sinus tachycardia when he was having labored breathing. Chest x- ray showed complete opacification of the right lung and based on that, a CAT scan of the chest was obtained that showed a massive right-sided pleural effusion and complete atelectasis of the right lung. Focal infiltrate in the left lung was also seen. The patient's white cell count is 15.6, hemoglobin 13.2, platelet count of 250, INR is at 1.6 with a PT of 16.9, sodium was at 131 with a potassium level of 4.1, BUN is 7 with a creatinine of 0.5. Anion gap is at 15. Initial lactic acid level was at 3.4, dropped down to 2.4, proBNP level was 118, troponin was negative, albumin was 4 with a total protein of 9.0. UA showed +1 protein, 2 WBCs and viral 4 Plex was negative. No history of any congestion or heart failure. Smokes marijuana. On 11/09/2024, the patient is being seen for a follow-up. The patient is feeling much better compared to yesterday. Noted I inserted a right-sided chest tube with a total of 5.2 L of fluid was immediately aspirated from the right lung and there was complete reexpansion of the right lung. Another 600 cc were drained overnight. No evidence of any air leak. Repeat chest x-ray was done today and the chest x-ray showed improved aeration of the right lower lobe along with some residual atelectatic changes. Meanwhile, the fluid analysis of the pleural fluid was suggestive of a transudate. The cell count showed a total of 144 white cells and those were essentially lymphocytes. At the same time, the pleural fluid albumin and LDH were essentially low making this fluid a transudate. Subsequently, an echocardiogram was obtained this morning and the echo showed a preserved LV function with an ejection fraction of 55%. Mild RV dilatation. No other significant valvular abnormalities. Ultrasound of the abdomen showed evidence of hepatosplenomegaly and diffuse fatty infiltration suggestive of hepatocellular disease and probably cirrhosis. Noted the patient has history of alcoholism. No reported ascites. The procalcitonin level is at 0.2. The patient is currently on oxygen at 6 L with a pulse ox of 91%. Afebrile. His sinus tachycardia has been improving and the patient was started on low-dose metoprolol. Remains on IV Rocephin. IV fluids were cut down to KVO. Objective - Vital Signs Vital signs: Vital Signs Temp 98.1 F 11/09/24 10:30 Pulse 115 H 11/09/24 10:35 Resp 16 11/09/24 10:35 BP 144/83 11/09/24 10:30 Pulse Ox 92 L 11/09/24 10:30 FiO2 Intake & Output 11/08/24 11/09/24 11/09/24 18:59 06:59 18:59 Output Total 6600 280 Balance -6600 -280 Weight 127.006 kg Output: Chest Tube Drainage 5500 Chest Tube Right Mid- 5500 Axillary Chest Drainage 650 280 Right Chest 650 280 Urine 450 - Exam The patient appeared well nourished and normally developed. Vital signs as documented. The patient remains on oxygen at 6 L/min nasal cannula. Head exam is unremarkable. No scleral icterus or corneal arcus noted. Neck is without jugular venous distension, thyromegaly, or carotid bruits. Carotid upstrokes are brisk bilaterally. Lungs are clear to auscultation and percussion. Right-sided chest tube in place. No evidence of any air leak. Additional 600 cc of pleural fluid is drained overnight. Cardiac exam reveals the PMI to be normally sized and situated. Rhythm is regular. First and second heart sounds normal. No murmurs, rubs or gallops. Abdominal exam reveals normal bowel sounds, no masses, no organomegaly and no aortic enlargement. Extremities are nonedematous and both femoral and pedal pulses are normal. Examination of the skin revealed no evidence of significant rashes, suspicious appearing nevi or other concerning lesions. Neurologically, the patient is awake and alert and the patient does not have any focal neurological deficit. Cranial nerves are essentially intact. Primary - Labs CBC & Chem 7: 11/08/24 17:02 11/08/24 17:02 Labs: Abnormal Lab Results - Last 24 Hours (Table) 11/08/24 11/08/24 11/08/24 Range/Units 17:02 17:02 17:02 WBC 15.6 H (3.8-10.6) k/uL RBC 4.22 L (4.30-5.90) m/uL RDW 17.7 H (11.5-15.5) % Neutrophils # 11.9 H (1.3-7.7) k/uL PT (10.0-12.5) sec INR (<1.2) Sodium 131 L (137-145) mmol/L Chloride 91 L (98-107) mmol/L BUN 7 L (9-20) mg/dL Creatinine 0.56 L (0.66-1.25) mg/dL Glucose 129 H (74-99) mg/dL Plasma Lactic Acid Christiano 3.4 H* (0.7-2.0) mmol/L Magnesium 1.3 L (1.6-2.3) mg/dL Total Bilirubin 3.2 H (0.2-1.3) mg/dL AST 194 H (17-59) U/L Alkaline Phosphatase 158 H (38-126) U/L Lactate Dehydrogenase (120-246) U/L Total Protein 9.0 H (6.3-8.2) g/dL Urine Protein (Negative) Urine Glucose (UA) (Negative) Urine Bilirubin (Negative) Ur Squamous Epith Cells (0-4) /hpf Hyaline Casts (0-2) /lpf Urine Mucus (None) /hpf 11/08/24 11/08/24 11/08/24 Range/Units 18:00 19:14 20:22 WBC (3.8-10.6) k/uL RBC (4.30-5.90) m/uL RDW (11.5-15.5) % Neutrophils # (1.3-7.7) k/uL PT 16.9 H (10.0-12.5) sec INR 1.6 H (<1.2) Sodium (137-145) mmol/L Chloride (98-107) mmol/L BUN (9-20) mg/dL Creatinine (0.66-1.25) mg/dL Glucose (74-99) mg/dL Plasma Lactic Acid Christiano (0.7-2.0) mmol/L Magnesium (1.6-2.3) mg/dL Total Bilirubin (0.2-1.3) mg/dL AST (17-59) U/L Alkaline Phosphatase (38-126) U/L Lactate Dehydrogenase 410 H (120-246) U/L Total Protein 8.7 H (6.3-8.2) g/dL Urine Protein 1+ H (Negative) Urine Glucose (UA) Trace H (Negative) Urine Bilirubin 1+ H (Negative) Ur Squamous Epith Cells 5 H (0-4) /hpf Hyaline Casts 25 H (0-2) /lpf Urine Mucus Many H (None) /hpf 11/08/24 11/08/24 Range/Units 20:22 23:42 WBC (3.8-10.6) k/uL RBC (4.30-5.90) m/uL RDW (11.5-15.5) % Neutrophils # (1.3-7.7) k/uL PT (10.0-12.5) sec INR (<1.2) Sodium (137-145) mmol/L Chloride (98-107) mmol/L BUN (9-20) mg/dL Creatinine (0.66-1.25) mg/dL Glucose (74-99) mg/dL Plasma Lactic Acid Christiano 2.4 H* 3.5 H* (0.7-2.0) mmol/L Magnesium (1.6-2.3) mg/dL Total Bilirubin (0.2-1.3) mg/dL AST (17-59) U/L Alkaline Phosphatase (38-126) U/L Lactate Dehydrogenase (120-246) U/L Total Protein (6.3-8.2) g/dL Urine Protein (Negative) Urine Glucose (UA) (Negative) Urine Bilirubin (Negative) Ur Squamous Epith Cells (0-4) /hpf Hyaline Casts (0-2) /lpf Urine Mucus (None) /hpf Microbiology - Last 24 Hours (Table) 11/08/24 20:05 Gram Stain - Preliminary Pleural Fluid Assessment and Plan Plan: Acute hypoxic respiratory failure, improved and the patient is currently on 6 L of oxygen by nasal cannula post chest tube insertion and evacuation of massive amount of right-sided pleural effusion. Shortness of breath, improving Large right-sided pleural effusion with mass effect and shift of the trachea to the left and complete atelectasis of the right lung. There is adequate reexpansion of the right lung post right-sided chest tube insertion. Some residual atelectatic changes in the right lung base. Meanwhile, the pleural fluid is a transudate. Rule out hepatic hydrothorax. CHF is felt to be less likely. Chronic liver disease, possibly liver cirrhosis Sinus tachycardia, improving Leukocytosis, likely acute Obesity with a BMI of 40.2 Hypertension Hypothyroidism Diabetes mellitus type 2 Plan Keep the chest tube in place for another 24 hours Monitor the output from the chest tube Daily chest x-rays Echocardiogram showed a preserved LV function Ultrasound the liver shows no evidence of any ascites and there is evidence of chronic liver disease. Check an acute viral hepatitis profile There is indication for chronic liver disease as the patient has baseline coagulopathy, hepatosplenomegaly and changes consistent with liver cirrhosis on the ultrasound of the abdomen and the CAT scan of the chest. Will need a GI consultation Fluid restriction and cut down the IV fluids to KVO Start metoprolol 25 mg p.o. twice daily Will continue to follow
[2024-11-09 16:09] LABS: Hepatitis A Antibody IgM Nonreactive (Nonreactive); Hepatitis B Core IgM Nonreactive (Nonreactive); Hepatitis B Surface Antigen Nonreactive (Nonreactive); Hepatitis C IgG Antibody Nonreactive (Nonreactive)
[2024-11-09 17:13] LABS: Glucose,Whole Blood 130 mg/dL (70-110)
[2024-11-10 08:01] LABS: Glucose,Whole Blood 116 mg/dL (70-110)
[2024-11-10 11:09] LABS: HCT 37.3 % (39.6-50.0); HGB 12.7 g/dL (13.0-17.0); MCH 30.5 pg (27.0-32.0); MCV 89.7 FL (80.0-97.0); Mean Platelet Volume 11.1 FL (9.5-12.2); NRBC Per 100 WBC 0 X 10*3/uL (0.00-0.01); Platelet Count 239 X 10*3/uL (140-440); RBC 4.16 X 10*6/uL (4.40-5.60); RDW 19.2 % (11.5-14.5); WBC 22.24 X 10*3/uL (4.50-10.00)
[2024-11-10 11:19] LABS: ALT 34 U/L (10-49); AST 123 U/L (14-35); Albumin 3.2 g/dL (3.8-4.9); Albumin/Globulin Ratio 0.68 Ratio (1.60-3.17); Alkaline Phosphatase 143 U/L (41-126); BUN/Creat Ratio 16.12 Ratio (12.00-20.00); Blood Urea Nitrogen 12.9 mg/dL (9.0-27.0); Calcium 8.6 mg/dL (8.7-10.3); Carbon Dioxide 23.5 mmol/L (21.6-31.8); Chloride 93 mmol/L (96-109); Globulin 4.7 g/dL (1.6-3.3); Glucose 102 mg/dL (70-110); Potassium 4.2 mmol/L (3.5-5.5); Sodium 130 mmol/L (135-145); Total Bilirubin 3.1 mg/dL (0.3-1.2); Total Protein 7.9 g/dL (6.2-8.2)
--- NOTE | 2024-11-10 11:34 | XR ---
EXAMINATION TYPE: XR chest 2V DATE OF EXAM: 11/10/2024 11:19 AM COMPARISON: Chest x-ray one day earlier. CLINICAL INDICATION: Male, 44 years old with history of Pleural effusion status post thoracentesis, TECHNIQUE: Frontal and lateral views of the chest are obtained. FINDINGS: Interval removal of right basilar chest tube. Persistent bibasilar opacity. The cardiac s ilhouette size remains within normal limits. The osseous structures are intact. IMPRESSION: Bibasilar acute infiltrate and/or atelectasis remains present. No significant change from prior after right-sided basilar chest tube removal. [facility], , 11/10/2024 11:31 AM
[2024-11-10 12:22] LABS: Glucose,Whole Blood 81 mg/dL (70-110)
--- NOTE | 2024-11-10 14:41 | P.PN ---
Subjective Progress Note Date: 11/10/24 44-year-old male patient, came into the emergency because of progressive worsen ing shortness of breath over the past 3 to 4 weeks and he was in severe respiratory distress, unable to lay down flat because of ongoing dyspnea. No chest pain. No trauma to the chest. No reported fever or chills. Minimal cough. No significant sputum production. In the emergency, he was placed on 100% nonrebreather facemask to maintain a saturation of around 88 to 89%. The patient was in sinus tachycardia when he was having labored breathing. Chest x- ray showed complete opacification of the right lung and based on that, a CAT scan of the chest was obtained that showed a massive right-sided pleural effusion and complete atelectasis of the right lung. Focal infiltrate in the left lung was also seen. The patient's white cell count is 15.6, hemoglobin 13.2, platelet count of 250, INR is at 1.6 with a PT of 16.9, sodium was at 131 with a potassium level of 4.1, BUN is 7 with a creatinine of 0.5. Anion gap is at 15. Initial lactic acid level was at 3.4, dropped down to 2.4, proBNP level was 118, troponin was negative, albumin was 4 with a total protein of 9.0. UA showed +1 protein, 2 WBCs and viral 4 Plex was negative. No history of any congestion or heart failure. Smokes marijuana. On 11/09/2024, the patient is being seen for a follow-up. The patient is feeling much better compared to yesterday. Noted I inserted a right-sided chest tube with a total of 5.2 L of fluid was immediately aspirated from the right lung and there was complete reexpansion of the right lung. Another 600 cc were drained overnight. No evidence of any air leak. Repeat chest x-ray was done today and the chest x-ray showed improved aeration of the right lower lobe along with some residual atelectatic changes. Meanwhile, the fluid analysis of the pleural fluid was suggestive of a transudate. The cell count showed a total of 144 white cells and those were essentially lymphocytes. At the same time, the pleural fluid albumin and LDH were essentially low making this fluid a transudate. Subsequently, an echocardiogram was obtained this morning and the echo showed a preserved LV function with an ejection fraction of 55%. Mild RV dilatation. No other significant valvular abnormalities. Ultrasound of the abdomen showed evidence of hepatosplenomegaly and diffuse fatty infiltration suggestive of hepatocellular disease and probably cirrhosis. Noted the patient has history of alcoholism. No reported ascites. The procalcitonin level is at 0.2. The patient is currently on oxygen at 6 L with a pulse ox of 91%. Afebrile. His sinus tachycardia has been improving and the patient was started on low-dose metoprolol. Remains on IV Rocephin. IV fluids were cut down to KVO. On 11/10/2024, the patient is being seen for a follow-up. Doing well and output from the right-sided chest tube is minimal and a follow-up chest x-ray was done today and it showed some atelectatic change in lung bases. No significant pleural effusion. Based on that, I removed the right-sided chest tube today. The pleural fluid cytology is still pending for now. Noted the pleural fluid was a transudate. White cell count is elevated at 22 with a hemoglobin 12.7. Sodium is at 130, BUN is 12 with a creatinine of 0.8. LFTs remain stable, AST is at 123, ALT is 34 and alkaline phosphatase is 143. Procalcitonin level was at 0.2. proBNP level was 410. Echocardiogram was essentially within normal limits. The patient may have an underlying chronic liver cirrhosis. Denies having any new complaints for now. Feeling well. No significant shortness of breath. Objective - Vital Signs Vital signs: Vital Signs Temp 97.7 F 11/10/24 11:51 Pulse 92 11/10/24 11:51 Resp 18 11/10/24 11:51 BP 121/70 11/10/24 11:51 Pulse Ox 90 L 11/10/24 11:51 FiO2 Intake & Output 11/09/24 11/10/24 11/10/24 18:59 06:59 18:59 Output Total 1195 Balance -1195 Weight 123 kg Output: Drainage 615 Right Chest 615 Urine 580 Other: # Voids 1 - Exam The patient appeared well nourished and normally developed. Vital signs as documented. The patient remains on room air oxygen Head exam is unremarkable. No scleral icterus or corneal arcus noted. Neck is without jugular venous distension, thyromegaly, or carotid bruits. Carotid upstrokes are brisk bilaterally. Lungs are clear to auscultation and percussion. Right-sided chest tube in place. No evidence of any air leak. Additional 600 cc of pleural fluid is drained overnight. Cardiac exam reveals the PMI to be normally sized and situated. Rhythm is regular. First and second heart sounds normal. No murmurs, rubs or gallops. Abdominal exam reveals normal bowel sounds, no masses, no organomegaly and no aortic enlargement. Extremities are nonedematous and both femoral and pedal pulses are normal. Examination of the skin revealed no evidence of significant rashes, suspicious appearing nevi or other concerning lesions. Neurologically, the patient is awake and alert and the patient does not have any focal neurological deficit. Cranial nerves are essentially intact. Primary - Labs CBC & Chem 7: 11/10/24 06:14 11/10/24 06:14 Labs: Abnormal Lab Results - Last 24 Hours (Table) 11/09/24 11/10/24 11/10/24 Range/Units 17:11 06:14 06:14 WBC 22.24 H (4.50-10.00) X 10*3/uL RBC 4.16 L (4.40-5.60) X 10*6/uL Hgb 12.7 L (13.0-17.0) g/dL Hct 37.3 L (39.6-50.0) % RDW 19.2 H (11.5-14.5) % Sodium 130 L (135-145) mmol/L Chloride 93 L (96-109) mmol/L Anion Gap 13.50 H (4.00-12.00) mmol/L POC Glucose (mg/dL) 130 H (70-110) mg/dL Calcium 8.6 L (8.7-10.3) mg/dL Total Bilirubin 3.1 H (0.3-1.2) mg/dL AST 123 H (14-35) U/L Alkaline Phosphatase 143 H (41-126) U/L Albumin 3.2 L (3.8-4.9) g/dL Globulin 4.7 H (1.6-3.3) g/dL Albumin/Globulin Ratio 0.68 L (1.60-3.17) Ratio 11/10/24 Range/Units 07:57 WBC (4.50-10.00) X 10*3/uL RBC (4.40-5.60) X 10*6/uL Hgb (13.0-17.0) g/dL Hct (39.6-50.0) % RDW (11.5-14.5) % Sodium (135-145) mmol/L Chloride (96-109) mmol/L Anion Gap (4.00-12.00) mmol/L POC Glucose (mg/dL) 116 H (70-110) mg/dL Calcium (8.7-10.3) mg/dL Total Bilirubin (0.3-1.2) mg/dL AST (14-35) U/L Alkaline Phosphatase (41-126) U/L Albumin (3.8-4.9) g/dL Globulin (1.6-3.3) g/dL Albumin/Globulin Ratio (1.60-3.17) Ratio Microbiology - Last 24 Hours (Table) 11/08/24 18:00 Blood Culture - Preliminary Blood 11/08/24 20:05 Gram Stain - Preliminary Pleural Fluid Body Fluid Culture - Preliminary Assessment and Plan Plan: Acute hypoxic respiratory failure, improved and the patient is currently on room air oxygen. Continues to have some atelectatic changes in lung base bilaterally Shortness of breath, improving Large right-sided pleural effusion with mass effect and shift of the trachea to the left and complete atelectasis of the right lung. There is adequate reexpansion of the right lung post right-sided chest tube insertion. Some residual atelectatic changes in the right lung base. Meanwhile, the pleural fluid is a transudate. Rule out hepatic hydrothorax. CHF is felt to be less likely. The output from the right-sided chest was minimal. Chest x-ray showed no residual pleural effusion. The chest tube was removed today. Chronic liver disease, possibly liver cirrhosis Sinus tachycardia, improving, currently on metoprolol Leukocytosis, likely acute Obesity with a BMI of 40.2 Hypertension Hypothyroidism Diabetes mellitus type 2 Plan Encouraged use of incentive spirometer Remove the chest tube today Repeat chest x-ray in a.m. Echocardiogram showed a preserved LV function Ultrasound the liver shows no evidence of any ascites and there is evidence of chronic liver disease. Check an acute viral hepatitis profile was negative There is indication for chronic liver disease as the patient has baseline coagulopathy, hepatosplenomegaly and changes consistent with liver cirrhosis on the ultrasound of the abdomen and the CAT scan of the chest. Monitor the white cell count Will need a GI consultation Fluid restriction and cut down the IV fluids to KVO Continue metoprolol 25 mg p.o. twice daily Will continue to follow
[2024-11-10 17:13] LABS: Glucose,Whole Blood 102 mg/dL (70-110)
--- NOTE | 2024-11-10 17:19 | P.PN ---
Subjective Progress Note Date: 11/10/24 Principal diagnosis: Progressive worsening shortness of breath per medical H&P, "44-year-old pleasant male came in with complaints of worsening shortness of breath has been going on for 3 to 4 weeks found to have a extensive right-sided pleural effusion complete whiteout of the right lung. Patient underwent pleural tap removal of about 6 L of pleural fluid. Pleural fluid labs are consistent with transudative. Patient does not have any elevated BNP clinically does not appear to be in CHF although patient appears to have ascites and liver disease with fatty liver patient has chronic alcoholism quit quit alcohol quite a bit recently. Ultrasound of the abdomen was done which showed fatty liver patient does have slightly elevated liver enzymes and INR is 1.6. All consistent with hepatocellular disease from chronic alcoholism. Hepatitis panel was ordered. Patient does not have any evidence of pneumonia although patient was empirically started on antibiotics before the fluid pleural pleural fluid analysis. There is no evidence of pneumonia. I do not have any albumin level for the fluid but serum albumin is 4 LDH is above 400 and fluid LDH is around 140. Presently has a chest tube in place. Hepatitis panel was ordered." Progress note for 11/10/2024: Patient was examined at bedside. Vitals show temperature of 98.4, pulse rate 109, respiratory rate 18, blood pressure 124/86, O2 sat at 95% on room air. Morning labs show glucose 116. Hepatitis panel was nonreactive for hep A, B, and C. Right chest tube output was 615 cc today. Denies any acute complaints at this time. Pulmonology will like to keep patient for 1 more day for observation. Review of Systems Constitutional: Denies chills, Denies fever Eyes: denies blurred vision, double vision or pain Ears, nose, mouth and throat: Denies headache, Denies sore throat Cardiovascular: Denies chest pain, Denies shortness of breath Respiratory: Denies cough Gastrointestinal: Denies abdominal pain, Denies diarrhea, Denies nausea, Denies vomiting Musculoskeletal: Denies myalgias Integumentary: Denies pruritus, Denies rash Neurological: Denies numbness, Denies weakness Psychiatric: Denies anxiety, Denies depression Endocrine: Denies fatigue, Denies weight change GENERAL: This is a 44-year-old in no apparent distress at the time of examination. Pleasant and cooperative. HEENT: Head is atraumatic, normocephalic. Pupils are equal, round, and reactive to light. Sclerae anicteric. Conjunctivae are clear. Mucus membranes of the mouth are moist. Neck is supple. RESPIRATORY: Clear to auscultation. No wheezes, rales, or rhonchi. No use of accessory muscles. Patient maintaining oxygen saturation greater than 92%. No chest wall tenderness is noted on palpation or with deep breathing. CARDIOVASCULAR: Regular rate and rhythm. S1 and S2 noted. No systolic or diastolic murmur auscultated. No JVD noted. No S3 or S4 noted. GASTROINTESTINAL: No distention noted. Abdomen soft and round. Normal active bowel sounds auscultated x 4 quadrants. No pain or tenderness noted upon palpation. INTEGUMENTARY: No cyanosis. No jaundice. No rashes noted. No cellulitis noted. EXTREMITIES: 2+ peripheral pulses. No evidence of peripheral edema. No calf tenderness noted. NEUROLOGIC: Cranial nerves II-XII intact. PSYCHIATRIC: Awake, alert. Appropriate affect. Intact judgement and insight. Assessment and plan: Acute hypoxic respiratory failure secondary to right-sided pleural effusion, status post removal 6 L of fluids with a chest tube in place 615 cc of output from right chest tube over past 24 hours Right chest tube was removed by pulmonary medicine this morning. Pulmonary medicine would like to keep patient here 1 more day for observation. Order chest x-ray Obtain morning CBC and CMP Possible cirrhosis/hepatocellular disease from chronic alcoholism Consider GI consult Abdominal ultrasound on 11/09/2024 showed hepatosplenomegaly. There is diffuse fatty infiltration and/or underlying hepatocellular disease noted. No ascites is present. Hypertension Continue with amlodipine 10 mg daily and metoprolol 25 mg twice daily Hypothyroidism Continue with Synthroid 100 mcg daily Type 2 diabetes mellitus Continue with sliding scale insulin DVT prophylaxis: Patient is already anticoagulated with elevated INR of 1.6, will not require any pharmacological DVT prophylaxis at this time Objective - Vital Signs Vital signs: Vital Signs Temp 98.4 F 11/10/24 07:51 Pulse 109 H 11/10/24 07:51 Resp 18 11/10/24 07:51 BP 124/86 11/10/24 07:51 Pulse Ox 95 11/10/24 07:51 FiO2 Intake & Output 11/09/24 11/10/24 11/10/24 18:59 06:59 18:59 Output Total 1195 Balance -1195 Output: Drainage 615 Right Chest 615 Urine 580 Other: # Voids 1 - Labs CBC & Chem 7: 11/10/24 06:14 11/10/24 06:14 Labs: Abnormal Lab Results - Last 24 Hours (Table) 11/09/24 11/09/24 11/10/24 Range/Units 12:30 17:11 07:57 POC Glucose (mg/dL) 145 H 130 H 116 H (70-110) mg/dL Microbiology - Last 24 Hours (Table) 11/08/24 18:00 Blood Culture - Preliminary Blood 11/08/24 20:05 Gram Stain - Preliminary Pleural Fluid Body Fluid Culture - Preliminary
[2024-11-10 20:38] LABS: Glucose,Whole Blood 123 mg/dL (70-110)
[2024-11-11 01:41] VITALS: PULSE 93
[2024-11-11 07:19] LABS: Glucose,Whole Blood 111 mg/dL (70-110)
[2024-11-11 07:53] VITALS: BP 130/63; RESP 17; TEMP 98.4
[2024-11-11 09:09] LABS: Basophils # (A) 0.06 X 10*3/uL (0.00-0.10); Basophils % (A) 0.4 %; Eosinophils # (A) 0.08 X 10*3/uL (0.04-0.35); Eosinophils % (A) 0.6 %; HCT 36.1 % (39.6-50.0); HGB 12.1 g/dL (13.0-17.0); Lymphocytes # (A) 3.71 X 10*3/uL (0.90-5.00); Lymphocytes % (A) 26.5 %; MCH 30.1 pg (27.0-32.0); MCHC 33.5 g/dL (32.0-37.0); MCV 89.8 FL (80.0-97.0); Mean Platelet Volume 11.3 FL (9.5-12.2); Monocytes # (A) 0.98 X 10*3/uL (0.20-1.00); NRBC Per 100 WBC 0 X 10*3/uL (0.00-0.01); Neutrophils # (A) 9.12 X 10*3/uL (1.80-7.70); Platelet Count 205 X 10*3/uL (140-440); RBC 4.02 X 10*6/uL (4.40-5.60); RDW 19.3 % (11.5-14.5); WBC 14.02 X 10*3/uL (4.50-10.00)
[2024-11-11 10:37] LABS: ALT 38 U/L (10-49); AST 139 U/L (14-35); Albumin 3.1 g/dL (3.8-4.9); Albumin/Globulin Ratio 0.76 Ratio (1.60-3.17); Alkaline Phosphatase 138 U/L (41-126); BUN/Creat Ratio 16.14 Ratio (12.00-20.00); Blood Urea Nitrogen 11.3 mg/dL (9.0-27.0); Calcium 8.4 mg/dL (8.7-10.3); Carbon Dioxide 24.9 mmol/L (21.6-31.8); Chloride 94 mmol/L (96-109); Globulin 4.1 g/dL (1.6-3.3); Glucose 104 mg/dL (70-110); Potassium 3.8 mmol/L (3.5-5.5); Sodium 130 mmol/L (135-145); Total Bilirubin 3.1 mg/dL (0.3-1.2); Total Protein 7.2 g/dL (6.2-8.2)
--- NOTE | 2024-11-11 11:50 | XR ---
EXAMINATION TYPE: XR chest 1V portable DATE OF EXAM: 11/11/2024 CLINICAL HISTORY: Difficulty breathing progress study. TECHNIQUE: Single AP portable upright view of the chest is obtained. COMPARISON: Chest x-ray from one day earlier FINDINGS: Persistent left basilar opacity. The cardiac silhouette size remains within normal limits . The osseous structures are intact. Possible right upper lobe pulmonary nodule. Consider CT follow -up to further evaluate based on correlation with right-sided thoracentesis results. IMPRESSION: Persistent left basilar acute infiltrate and/or atelectasis. No new acute pulmonary proce ss. [facility], , 11/11/2024 11:47 AM
--- NOTE | 2024-11-11 12:32 | P.DS ---
Providers Date of admission: 11/08/24 19:20 Expected date of discharge: 11/11/24 Attending physician: Collin Fernández MD Consults: 11/08/24 19:19 Consult Physician Urgent Consulting Provider: Dmitriy Chau Consult Reason/Comments: Massive right pleural effusion Do you want consulting provider notified?: Already Contacted Primary care physician: [facility] Course: Hospital course: Patient is a 44-year-old male presented to the ED with complaints of worsening shortness of breath going on for the past 3 to 4 weeks was found initially to have an extensive right-sided pleural effusion complete whiteout of the right lung. Patient subsequently underwent pleural tap removal of about 6 L of pleural fluid and chest tube was inserted. Based on analysis, pleural fluid labs are consistent with transudative. Patient does not have elevated BNP clinically although patient appears to have ascites and liver disease consistent with fatty liver. Patient reported quitting alcohol recently. Ultrasound of the abdomen was also done which showed diffuse fatty infiltration and underlying hepatocellular disease noted. No ascites is present. Patient's overall breathing has gotten much better over the next few days and pulmonology removed his chest tube on 11/10/2024. Patient was seen at bedside on 11/11/2024 with no acute complaints at this time. Patient is stable to be discharged back home. Metoprolol tartrate 25 mg twice daily is added to patient's home medication. Patient is recommended to follow-up with his primary care physician in 1 to 2 days after discharge. Physical examination at discharge: GENERAL: This is a 44-year-old in no apparent distress at the time of examination. Pleasant and cooperative. HEENT: Head is atraumatic, normocephalic. Pupils are equal, round, and reactive to light. Sclerae anicteric. Conjunctivae are clear. Mucus membranes of the mouth are moist. Neck is supple. RESPIRATORY: Clear to auscultation. No wheezes, rales, or rhonchi. No use of accessory muscles. Patient maintaining oxygen saturation greater than 92%. No chest wall tenderness is noted on palpation or with deep breathing. CARDIOVASCULAR: Regular rate and rhythm. S1 and S2 noted. No systolic or diastolic murmur auscultated. No JVD noted. No S3 or S4 noted. GASTROINTESTINAL: No distention noted. Abdomen soft and round. Normal active bowel sounds auscultated x 4 quadrants. No pain or tenderness noted upon palpation. INTEGUMENTARY: No cyanosis. No jaundice. No rashes noted. No cellulitis noted. EXTREMITIES: 2+ peripheral pulses. No evidence of peripheral edema. No calf tenderness noted. NEUROLOGIC: Cranial nerves II-XII intact. PSYCHIATRIC: Awake, alert. Appropriate affect. Intact judgement and insight. Patient Condition at Discharge: Stable Plan - Discharge Summary Discharge Rx Participant: No New Discharge Prescriptions: New Metoprolol Tartrate 25 mg PO BID 30 Days #60 tab Continue Citalopram Hydrobromide [CeleXA] 10 mg PO DAILY metFORMIN HCL [Glucophage] 500 mg PO DAILY Levothyroxine Sodium [Synthroid] 100 mcg PO DAILY amLODIPine 10 mg PO DAILY Discharge Medication List Citalopram Hydrobromide [CeleXA] 10 mg PO DAILY 11/08/24 [History] Levothyroxine Sodium [Synthroid] 100 mcg PO DAILY 11/08/24 [History] amLODIPine 10 mg PO DAILY 11/08/24 [History] metFORMIN HCL [Glucophage] 500 mg PO DAILY 11/08/24 [History] Metoprolol Tartrate 25 mg PO BID 30 Days #60 tab 11/11/24 [Rx] Follow up Appointment(s)/Referral(s): Georgina Monroy MD [Primary Care Provider] - 1-2 days Discharge Disposition: HOME SELF-CARE
[2024-11-11 12:40] LABS: Glucose,Whole Blood 86 mg/dL (70-110)
--- NOTE | 2024-11-11 18:00 | P.PN ---
Subjective Progress Note Date: 11/11/24 44-year-old male patient, came into the emergency because of progressive worsen ing shortness of breath over the past 3 to 4 weeks and he was in severe respiratory distress, unable to lay down flat because of ongoing dyspnea. No chest pain. No trauma to the chest. No reported fever or chills. Minimal cough. No significant sputum production. In the emergency, he was placed on 100% nonrebreather facemask to maintain a saturation of around 88 to 89%. The patient was in sinus tachycardia when he was having labored breathing. Chest x- ray showed complete opacification of the right lung and based on that, a CAT scan of the chest was obtained that showed a massive right-sided pleural effusion and complete atelectasis of the right lung. Focal infiltrate in the left lung was also seen. The patient's white cell count is 15.6, hemoglobin 13.2, platelet count of 250, INR is at 1.6 with a PT of 16.9, sodium was at 131 with a potassium level of 4.1, BUN is 7 with a creatinine of 0.5. Anion gap is at 15. Initial lactic acid level was at 3.4, dropped down to 2.4, proBNP level was 118, troponin was negative, albumin was 4 with a total protein of 9.0. UA showed +1 protein, 2 WBCs and viral 4 Plex was negative. No history of any congestion or heart failure. Smokes marijuana. On 11/09/2024, the patient is being seen for a follow-up. The patient is feeling much better compared to yesterday. Noted I inserted a right-sided chest tube with a total of 5.2 L of fluid was immediately aspirated from the right lung and there was complete reexpansion of the right lung. Another 600 cc were drained overnight. No evidence of any air leak. Repeat chest x-ray was done today and the chest x-ray showed improved aeration of the right lower lobe along with some residual atelectatic changes. Meanwhile, the fluid analysis of the pleural fluid was suggestive of a transudate. The cell count showed a total of 144 white cells and those were essentially lymphocytes. At the same time, the pleural fluid albumin and LDH were essentially low making this fluid a transudate. Subsequently, an echocardiogram was obtained this morning and the echo showed a preserved LV function with an ejection fraction of 55%. Mild RV dilatation. No other significant valvular abnormalities. Ultrasound of the abdomen showed evidence of hepatosplenomegaly and diffuse fatty infiltration suggestive of hepatocellular disease and probably cirrhosis. Noted the patient has history of alcoholism. No reported ascites. The procalcitonin level is at 0.2. The patient is currently on oxygen at 6 L with a pulse ox of 91%. Afebrile. His sinus tachycardia has been improving and the patient was started on low-dose metoprolol. Remains on IV Rocephin. IV fluids were cut down to KVO. On 11/10/2024, the patient is being seen for a follow-up. Doing well and output from the right-sided chest tube is minimal and a follow-up chest x-ray was done today and it showed some atelectatic change in lung bases. No significant pleural effusion. Based on that, I removed the right-sided chest tube today. The pleural fluid cytology is still pending for now. Noted the pleural fluid was a transudate. White cell count is elevated at 22 with a hemoglobin 12.7. Sodium is at 130, BUN is 12 with a creatinine of 0.8. LFTs remain stable, AST is at 123, ALT is 34 and alkaline phosphatase is 143. Procalcitonin level was at 0.2. proBNP level was 410. Echocardiogram was essentially within normal limits. The patient may have an underlying chronic liver cirrhosis. Denies having any new complaints for now. Feeling well. No significant shortness of breath. On 11/11/2024, the patient is doing well. Chest tube was removed yesterday and there is some limited amount of leak from the insertion site. Otherwise, the repeat chest x-ray shows no significant abnormalities. Oxygenation is stable. The white cell count is 14 with a hemoglobin of 12 and a platelet count of 205. Sodium is at 130, BUN is 11 with a creatinine of 0.7. Denies having any specific complaints. The patient is to be discharged home today to be followed up on outpatient basis. He will be discharged home metoprolol for some sinus tachycardia which is essentially improved. His home medication is also to be resumed. Objective - Vital Signs Vital signs: Vital Signs Temp 98.4 F 11/11/24 07:52 Pulse 93 11/11/24 07:52 Resp 17 11/11/24 07:52 BP 130/63 11/11/24 07:52 Pulse Ox 92 L 11/11/24 07:52 FiO2 Intake & Output 11/10/24 11/11/24 11/11/24 18:59 06:59 18:59 Intake Total 1350 240 Balance 1350 240 Weight 123 kg 121.4 kg Intake: Oral 1350 240 Other: Voiding Method Toilet Toilet - Exam The patient appeared well nourished and normally developed. Vital signs as documented. The patient remains on room air oxygen Head exam is unremarkable. No scleral icterus or corneal arcus noted. Neck is without jugular venous distension, thyromegaly, or carotid bruits. Carotid upstrokes are brisk bilaterally. Lungs are clear to auscultation and percussion. Right-sided chest tube has been removed Cardiac exam reveals the PMI to be normally sized and situated. Rhythm is regular. First and second heart sounds normal. No murmurs, rubs or gallops. Abdominal exam reveals normal bowel sounds, no masses, no organomegaly and no aortic enlargement. Extremities are nonedematous and both femoral and pedal pulses are normal. Examination of the skin revealed no evidence of significant rashes, suspicious appearing nevi or other concerning lesions. Neurologically, the patient is awake and alert and the patient does not have any focal neurological deficit. Cranial nerves are essentially intact. Primary - Labs CBC & Chem 7: 11/11/24 03:25 11/11/24 03:25 Labs: Abnormal Lab Results - Last 24 Hours (Table) 11/10/24 11/11/24 11/11/24 Range/Units 20:36 03:25 03:25 WBC 14.02 H (4.50-10.00) X 10*3/uL RBC 4.02 L (4.40-5.60) X 10*6/uL Hgb 12.1 L (13.0-17.0) g/dL Hct 36.1 L (39.6-50.0) % RDW 19.3 H (11.5-14.5) % Immature Gran # 0.07 H (0.00-0.04) X 10*3/uL Neutrophils # 9.12 H (1.80-7.70) X 10*3/uL Sodium 130 L (135-145) mmol/L Chloride 94 L (96-109) mmol/L POC Glucose (mg/dL) 123 H (70-110) mg/dL Calcium 8.4 L (8.7-10.3) mg/dL Total Bilirubin 3.1 H (0.3-1.2) mg/dL AST 139 H (14-35) U/L Alkaline Phosphatase 138 H (41-126) U/L Albumin 3.1 L (3.8-4.9) g/dL Globulin 4.1 H (1.6-3.3) g/dL Albumin/Globulin Ratio 0.76 L (1.60-3.17) Ratio 11/11/24 Range/Units 07:17 WBC (4.50-10.00) X 10*3/uL RBC (4.40-5.60) X 10*6/uL Hgb (13.0-17.0) g/dL Hct (39.6-50.0) % RDW (11.5-14.5) % Immature Gran # (0.00-0.04) X 10*3/uL Neutrophils # (1.80-7.70) X 10*3/uL Sodium (135-145) mmol/L Chloride (96-109) mmol/L POC Glucose (mg/dL) 111 H (70-110) mg/dL Calcium (8.7-10.3) mg/dL Total Bilirubin (0.3-1.2) mg/dL AST (14-35) U/L Alkaline Phosphatase (41-126) U/L Albumin (3.8-4.9) g/dL Globulin (1.6-3.3) g/dL Albumin/Globulin Ratio (1.60-3.17) Ratio Microbiology - Last 24 Hours (Table) 11/08/24 18:00 Blood Culture - Preliminary Blood 11/08/24 20:05 Anaerobic Culture - Preliminary Pleural Fluid 11/08/24 20:05 Gram Stain - Preliminary Pleural Fluid Body Fluid Culture - Preliminary Assessment and Plan Plan: Acute hypoxic respiratory failure, improved and the patient is currently on room air oxygen. Continues to have some atelectatic changes in lung base bilaterally Shortness of breath, improved Large right-sided pleural effusion with mass effect and shift of the trachea to the left and complete atelectasis of the right lung. There is adequate reexpansion of the right lung post right-sided chest tube insertion. Some residual atelectatic changes in the right lung base. Meanwhile, the pleural fluid is a transudate. Rule out hepatic hydrothorax. CHF is felt to be less likely. Right-sided chest tube was removed on 11/10/2024. Repeat chest x-ray shows no significant abnormalities. Chronic liver disease, possibly liver cirrhosis Sinus tachycardia, improving, currently on metoprolol Leukocytosis, likely acute Obesity with a BMI of 40.2 Hypertension Hypothyroidism Diabetes mellitus type 2 Plan Encouraged use of incentive spirometer Chest tube has been removed Repeat chest x-ray in a.m. was noted Echocardiogram showed a preserved LV function Ultrasound the liver shows no evidence of any ascites and there is evidence of chronic liver disease. Check an acute viral hepatitis profile was negative There is indication for chronic liver disease as the patient has baseline coagulopathy, hepatosplenomegaly and changes consistent with liver cirrhosis on the ultrasound of the abdomen and the CAT scan of the chest. Monitor the white cell count Will need a GI consultation Fluid restriction and cut down the IV fluids to KVO Continue metoprolol 25 mg p.o. twice daily To be discharged home today to be followed up on outpatient basis.
== END 2024-11-11 13:04 | disposition home or self-care (01) | DRG 143 ==
LOC: EC 16:35 → 3SCARD 19:20 → 5NMEDONC 11-09 15:27
PROVIDERS: ADMIT Internal Medicine; ATTEND Internal Medicine
PROC: 0W9930Z Drainage of Right Pleural Cavity with Drainage Device, Percutaneous Approach (ICD-10-PCS; principal; 2024-11-08)
DX: J90 Pleural effusion, not elsewhere classified (principal); J96.01 Acute respiratory failure with hypoxia; D68.9 Coagulation defect, unspecified; K70.31 Alcoholic cirrhosis of liver with ascites; R16.2 Hepatomegaly with splenomegaly, not elsewhere classified; E66.9 Obesity, unspecified; E11.9 Type 2 diabetes mellitus without complications; Z68.41 Body mass index [BMI] 40.0-44.9, adult; E03.9 Hypothyroidism, unspecified; I11.9 Hypertensive heart disease without heart failure; K70.0 Alcoholic fatty liver; R00.0 Tachycardia, unspecified; Z79.84 Long term (current) use of oral hypoglycemic drugs; Z79.890 Hormone replacement therapy; Z79.899 Other long term (current) drug therapy; Z87.891 Personal history of nicotine dependence
CPT/HCPCS: 36415; 71045; 71046; 71250; 76700; 80053; 80074; 81001; 82465; 82945; 83605; 83615; 83735; 83880; 84145; 84155; 84157; 84484; 85025; 85027; 85610; 85730; 87040; 87070; 87075; 87205; 87636; 88108; 88305; 88341; 88342; 89050; 93005; 93306; 94760; 96361; 96365; 96366; 96367; 96368; 96375; 96376; 99291